=== PATIENT | female | born 1985 | race Caucasian/White ===

== ENCOUNTER 2024-01-14 14:55 | Emergency (ER) | payer BC ==
[~2024-01-14] VITALS: Ht 157.5 cm; Wt 79.5 kg
[~2024-01-14 14:55] MED LIST: MOTRIN 600600 MG/TAB PO; PERCOCET 325 MG1 TA2 PO; PRENATAL1 TA1 PO; WELLBUTRIN XL300 M1 PO; ZYRTEC ALLERGY10 MG PO
[2024-01-14 14:59] VITALS: BP 118/83; PULSE 93; TEMP 98
== END 2024-01-14 16:49 | disposition left against medical advice (07) ==
LOC: COL.ER 14:55
DX: R07.89 Other chest pain (principal); Z53.29 Procedure and treatment not carried out because of patient's decision for other reasons